=== PATIENT | female | born 1960 | race Asian ===

== ENCOUNTER 2018-11-18 12:30 | Emergency (ER) | payer BC ==
[~2018-11-18] VITALS: Ht 165.1 cm; Wt 79.8 kg
[2018-11-18 12:30] VITALS: BP 182/85; TEMP 98.3
[2018-11-18 13:06] LABS: PLATELET COUNT 271 K/uL (152-353)
== END 2018-11-18 15:46 | disposition home or self-care (01) ==
LOC: ED 12:30
PROVIDERS: Family Medicine
DX: E87.6 Hypokalemia (principal); J06.9 Acute upper respiratory infection, unspecified; N39.0 Urinary tract infection, site not specified; J01.90 Acute sinusitis, unspecified
CPT/HCPCS: 80053; 81000; 85027; 87088; 87502; 87651; 96374; 96375; 99284; J1885; J3490